=== PATIENT | male | born 1975 | race Caucasian/White ===

== ENCOUNTER 2019-02-08 12:27 | Outpatient (CLI) | payer OTHER ==
--- NOTE | 2019-02-08 13:32 | CT ---
CT Stone Protocol HISTORY: History of recurrent kidney stones left back pain lower pelvic pain and hematuria. COMPARISON: None. FINDINGS: The lung bases are clear of infiltrative process. The liver, spleen, pancreas and gallbladder regions appear unremarkable. Right and left adrenal glands and right and left kidneys are normal in size and appearance. There are no renal calculi identified no obstruction or ureteral calculi seen. No significant periaortic or mesenteric adenopathy. CT of pelvis performed without contrast: There is no evidence of adenopathy, mass or free fluid. The appendix is normal. Minimal arthritic changes of the spine are noted. IMPRESSION: No acute findings of abdomen or pelvis
== END 2019-02-08 12:28 | disposition home or self-care (01) ==
LOC: BICCT 12:27
PROVIDERS: ATTEND Nurse Practitioner Family
DX: N20.0 Calculus of kidney (principal)
CPT/HCPCS: 74176

== ENCOUNTER 2022-01-23 19:16 | Emergency (ER) | payer BC ==
[2022-01-23] MEDS ORDERED: Acetaminophen 500 MG TAB ONE (20:05)
[2022-01-23] MEDS ORDERED: diphenhydrAMINE 50 MG/ML VIAL ONE (20:06)
[2022-01-23] MEDS ORDERED: Metoclopramide HCl 10 MG/2 ML VIAL ONE (20:06)
== END 2022-01-23 22:20 | disposition home or self-care (01) ==
LOC: ERS 19:16
DX: R51.9 Headache, unspecified (principal)
CPT/HCPCS: 70450; 96361; 96374; 96375; J1200; J2765

== ENCOUNTER 2024-06-27 12:26 | Outpatient (CLI) | payer BC | END 2024-06-27 12:27 | disposition home or self-care (01) | LOC: BICMRI 12:26 | PROVIDERS: ATTEND Family Medicine Sports Medicine | DX: S83.242A Other tear of medial meniscus, current injury, left knee, initial encounter (principal); M71.22 Synovial cyst of popliteal space [Baker], left knee; M94.262 Chondromalacia, left knee ==